=== PATIENT | male | born 1945 | race Caucasian/White ===

== ENCOUNTER → 2016-07-06 | Outpatient (CLI) | payer OTHER, BC | LOC: MMPC 11:11 | PROVIDERS: ATTEND Surgery | DX: K59.00 Constipation, unspecified (principal) | CPT/HCPCS: 99212 ==

== ENCOUNTER → 2016-07-08 | Outpatient (CLI) | payer OTHER, BC ==
[2016-07-08 11:04] LABS: BASOPHILS # (AUTO) 0.01 10*3/UL; BASOPHILS % (AUTO) 0.2 % (0-1); EOSINOPHILS % (AUTO) 1.8 % (0-8); HEMATOCRIT 42.3 % (42.0-52.0); HEMOGLOBIN 13.7 g/dL (14.0-18.0); LYMPHOCYTES # (AUTO) 1.66 10*3/uL; MEAN CORPUSCULAR HEMOGLOBIN 30.8 PG (27-31); MEAN CORPUSCULAR HGB CONC 32.4 g/dL (33-37); MEAN CORPUSCULAR VOLUME 95.1 FL (80-90); MEAN PLATELET VOLUME 9.6 FL (7.4-12.2); MONOCYTES # (AUTO) 0.56 10*3/UL (0.3-0.8); MONOCYTES % (AUTO) 10.1 % (5-15); NEUTROPHILS # (AUTO) 3.19 10*3/UL; NEUTROPHILS % (AUTO) 57.7 % (50-80); RED BLOOD COUNT 4.45 10^6/uL (4.70-6.10)
[2016-07-08 12:07] LABS: PLATELET MORPHOLOGY COMMENT NORMAL MORPHOLOGY (NORM); RBC MORPHOLOGY COMMENT NORMAL MORPHOLOGY (NORM); WBC MORPHOLOGY COMMENT NORMAL MORPHOLOGY (NORM)
[2016-07-08 14:25] LABS: HEMOGLOBIN A1C 6.66 % (4.2-6.0)
== END ==
LOC: MOB LAB 10:19
DX: E11.9 Type 2 diabetes mellitus without complications (principal); I10 Essential (primary) hypertension; G47.30 Sleep apnea, unspecified
CPT/HCPCS: 36415; 83036; 85025

== ENCOUNTER 2016-07-10 12:21 | Emergency (ER) | payer OTHER, BC ==
[2016-07-10 12:51] VITALS: RESP 18; TEMP 97.7
[2016-07-10] MEDS ORDERED: NORMAL SALINE 10 ML SYRINGE FLUSH IVP PRN (13:32)
--- NOTE | 2016-07-10 14:08 | DI ---
XR SHOULDER MIN 2VW,07/10/2016 12:56 PM: Clinical History: Fall with shoulder and upper back pain. Previous Exam: None at this facility. Findings: 2 views of the left shoulder are obtained, and demonstrate anatomic alignment without fractures. The adjacent left lung and chest wall are unremarkable. Impression: Normal left shoulder.
--- NOTE | 2016-07-11 01:39 | PDOC ---
Shoulder Injury/Pain HPI - General Chief Complaint: Upper Extremity Problem/Injury Stated Complaint: L SHOULDER BLADE/UPPER BACK PAIN Date Seen by Provider: 07/10/16 Time Seen by Provider: 12:25 Source: POSITIVE: Patient Exam Limitations: POSITIVE: No limitations Nurse's Notes Reviewed & Considered: Yes - History of Present Illness Initial Comments: The patient is a 71-year-old male. Approximately 2 on a half hours [employer] he was getting out of his recreational vehicle and he slipped and struck the posterior aspect of his left shoulder on the chassis of the vehicle. He complains of pain to the left shoulder since. He denies any associated head neck back chest abdominal or other extremity injuries or symptoms. Have you received a tetanus shot in the past 10 years?: Yes Location: Left Shoulder Timing: REPORTS: Abrupt Duration: 1-3 hours Severity: Moderate Quality: REPORTS: "Pain", Tenderness Context: REPORTS: Direct Blow Associated Symptoms: REPORTS: Bruising (Some ecchymosis over the posterior aspect of left shoulder with associated abrasion) Any Prior Injuries Related to Current Complaint?: No - Patient Home Medications Home Medications: Home Medications Aspirin/Calcium Carbonate/Mag [Aspirin Buffered 325 Mg Tab] 325 mg PO QD tab Omeprazole 1 tab PO DAILY PRN cap 11/29/12 Tadalafil [Cialis] 1 tab PO PRN PRN tab 11/29/12 Pantoprazole Sodium 1 tab PO BID #60 tab 06/28/13 Blood-Glucose Meter [Freestyle Lite Meter] 1 each MC DAILY unit 07/31/13 Blood Sugar Diagnostic [Freestyle Test Strips] 1 each IN DAILY #50 strip Ca Cmb No.1/Vit D3/B-6/FA/B12 [Vitamin D3 1,000 Unit Tablet] 1 tab PO DAILY #30 tab 11/09/13 Nitroglycerin 1 tab SL PRN #9 tab 06/18/14 Fluticasone Propionate [Flonase Allergy Relief] 2 spr TONY DAILY #1 spr Fluticasone Propionate [Flonase Allergy Relief] 2 spr TONY DAILY #1 spr Triamcinolone Acetonide [Nasacort] 2 spr TONY QD #1 spray 07/04/15 Montelukast Sodium [Singulair] 1 tab PO QD PRN #90 tab 08/27/15 Carvedilol 1 tab PO BID #180 tab 11/07/15 Pravastatin Sodium [Pravachol] 1 tab PO QD #90 tab 01/24/16 Losartan Potassium 1 tab PO QD #90 tab 06/29/16 Pioglitazone HCl/Metformin HCl [Actoplus Met 15 Mg-500 Mg Tab] 1 tab PO BID # 180 tab 06/29/16 - Patient Allergies Allergies/Adverse Reactions: Allergies Allergy/AdvReac Type Severity Reaction Status Date / Time Iodinated Contrast Media - Allergy Severe Anaphylaxis Verified 07/10/16 12:23 Oral and lisinopril AdvReac Intermediate NOT Verified 07/10/16 12:23 APPLICABLE metoprolol AdvReac Intermediate lethargy Verified 07/10/16 12:23 Past Medical History - heen HEENT History: Denies History Cardiovascular History: Hypertension, CAD, Hyperlipidemia Additional Cardiovasular History: -CABG 2014. 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: Impotence Cancer History: Denies History In Past Year Been Physically Harmed or Verbally Threatened: No History of MDRO: No Tobacco Use: Former Smoker Alcohol Use: Heavy Type of alcohol normally used: Hard Liquor Substance Use Type: None Previous Surgical History: Yes Type / Date of Surgery: CABG/ STENTS/ TONSILLECTOMY/ R WRIST FX Anesthesia Reactions: No Malignant Hyperthermia: No Significant Family History: No pertinent family hx Past Medical History Reviewed: Reviewed - No Changes ROS - Limitations ROS Limitations: No Limitations Constitution: REPORTS: Denies Symptoms Cardiovascular: REPORTS: Denies Cardiac Symptoms Respiratory: REPORTS: Denies Resp Symptoms Neurological: REPORTS: Denies Neuro Symptoms Gastrointestinal: REPORTS: Denies GI Symptoms Endocrine: REPORTS: Denies Symptoms Musculoskeletal: REPORTS: Joint Pain (Left shoulder), Recent Injury (As above) Genitourinary: REPORTS: Denies Symptoms Eyes: REPORTS: Denies Symptoms ENT: REPORTS: Denies Symptoms Skin: REPORTS: Other (Abrasion and contusion over posterior aspect of left shoulder) Lympathic: REPORTS: Denies Lympathic Symptoms Immunologic: POSITIVE: Denies Symptoms Psychiatric: POSITIVE: Denies Psych Symptoms Shoulder Injury/Pain Exam - General Appearance General Appearance: POSITIVE: Alert, Cooperative, Mild Distress. NEGATIVE: No Evidence of Trauma - Upper Extremity Shoulder: POSITIVE: Full ROM (But full abduction and extension painful), No Dislocation, Soft-Tissue Tenderness (Posterior aspect of left shoulder), Bony Tenderness (Posterior aspect of left shoulder), Ecchymosis (Posterior aspect of left shoulder), Held in Adduction, See Diagram. NEGATIVE: Swelling, Clavicular Deformity, AC Drop-Off, Anterior Fullness, Limited ROM, Limited Abduction (Full abduction painful) Upper Extremity: POSITIVE: Uninjured Below Shoulder Neuro/Vascular: POSITIVE: Sensation Normal, Motor Normal, No Vascular Compromise Skin: POSITIVE: See Diagram (Contusion and abrasion posterior aspect left shoulder) - HEENT HEENT: POSITIVE: Head Inspection Nml, Eyes Inspection Nml, Ears Inspection Nml, Nose Inspection Nml, Oral/Dental Inspect. Nml, Pharynx Inspect. Nml, PERRL, EOMI - Neck / Back Neck/Back: POSITIVE: Normal Inspection, Non-Tender, Painless ROM - Respiratory / CVS Respiratory / CVS: POSITIVE: Chest Non Tender, No Ecchymosis, Breath Sounds Normal, No Respiratory Distress, Heart Sounds Normal, Regular Rate/Rhythm Peripheral Pulses: Radial (R): 2+, Radial (L): 2+ Images - Upper Extremities Upper Extremities: 1 - Abrasion and small contusion Shoulder Pain/Injury Progress - Results Reviewed by me Xrays/CTs/US Reviewed by me: Yes Discussed with Radiologist: No Radiology Findings: X-ray left shoulder normal - Patient's Progress Pain Medication Addressed: POSITIVE: Yes (Recommended Advil or Tylenol) School/Work Release Addressed: POSITIVE: Not Applicable Re-Examine Time:: 13:20 Re-Examine Comment: Shoulder immobilizer placed Status: POSITIVE: Unchanged, Re-Examined - Consult Counseled: POSITIVE: Patient, RE: Radiology Results, RE: DX, RE: Need for F/U Patient Care Time - Estimated PCT Patient Care Time (In Minutes): 30 Vital Signs - VS Reviewed Vital Signs Reviewed: Yes Discharge Clinical Impression: Contusion Discharge Disposition: Discharged to Home Condition: Stable Patient Instructions Given at Discharge: Contusion in Adults (ED) Additional Instructions: X-ray of your left shoulder shows no fractures or dislocations. You do have a contusion over the back of your left shoulder and an abrasion, but I see no evidence of any serious injuries. Advil or Tylenol for pain. Wear shoulder immobilizer as necessary. Wash abrasion with soap and water daily and apply bacitracin daily. Return anytime if condition worsens in any way. Follow-up with your primary care provider. Follow Up With: [facility] [Primary Care Provider] - (Instructions as above. Follow-up with your primary care provider. Return here anytime if condition worsens.)
== END 2016-07-10 13:36 | disposition home or self-care (01) ==
LOC: ER 12:21
DX: S40.012A Contusion of left shoulder, initial encounter (principal); S40.212A Abrasion of left shoulder, initial encounter; E11.9 Type 2 diabetes mellitus without complications; M25.512 Pain in left shoulder; Z95.1 Presence of aortocoronary bypass graft; W17.89XA Other fall from one level to another, initial encounter
CPT/HCPCS: 73030; 99282; 99283

== ENCOUNTER 2016-07-13 07:55 | Day surgery (SDC) | payer OTHER, BC ==
[~2016-07-13 07:55] MED LIST: LIDOCAINE W/ SODIUM BICARB 0.5 ML SYR ONE; Lactated Ringers 1,000 ML PRIMARY IV ONE
--- NOTE | 2016-07-13 08:44 | GEN.OPNOTE ---
Operative Note Surgery Date: 07/13/16 Preoperative Diagnosis: Desire for sterilization Postoperative Diagnosis: Same Procedure: Vasectomy Surgeon: Segundo Avelar MD Anesthesia Provider: Bradley James CRNA Anesthesia Type: Local, MAC Estimated Blood Loss (mL): 2 Fluids: Lactated Ringer's please see anesthesia notes in EMR Pathology: Right and left vas deferens Indications: Patient is reaches reproductive goals would like permanent sterilization Operative Summary: The patient was brought into the operating room placed in dorsal lithotomy position prepped draped sterile fashion. I identified the vas deferens on the left side initially infiltrate local anesthetic dissect out the vas deferens removed a 1 cm segment tied off the distal end. I sewed the distal cut in back upon itself. I then returned the spermatic cord and its anatomical position closed the skin with 5-0 Vicryl simple sutures. I then identified the vas on the right side infiltrate local anesthetic. Dissect out the vas deferens. Removed a 1 cm segment. I tied off the distal and in a similar fashion Close the skin in a similar fashion. Patient tolerated well no complications. Counts were correct.
[2016-07-13] MEDS ORDERED: KETOROLAC 30 MG/1 ML VIAL ONE (08:59)
--- NOTE | 2016-07-13 09:28 | GEN.OPNOTE ---
Colonoscopy Procedure Note Surgery Date: 07/13/16 Preoperative Diagnosis: Screening colonoscopy Postoperative Diagnosis: Normal appearing colon Procedure: Colonoscopy Surgeon: Segundo Avelar MD Anesthesia Provider: Bradley James CRNA Anesthesia Type: MAC Indications: Colon cancer screening Findings: Prep : Marginal Cecum : There is a video colonoscopy scope inserted all way to the cecum. I so it appeared be necrosis foot but cannot truly identify the ileocecal valve. Therefore again antibiotics since her saw the cecum but the portion I did see appeared be normal Ascending : Ascending colon within normal limits no polyps tumors or cancers Transverse : Transverse colon within normal limits Sigmoid : Descending and sigmoid colon within normal limits Rectum : Rectum had no abnormal pathology. Digital Rectal Exam : A lubricated flexible colonoscope was inserted and passed to the blind end of the cecum. Additional Details: Because I cannot be certain that I reach the cecum I will offer the patient completion colonoscopy versus just follow him with Hemoccult cards
[2016-07-13 10:03] VITALS: RESP 17
[2016-07-13 11:56] VITALS: TEMP 98
== END 2016-07-13 10:22 | disposition home or self-care (01) ==
LOC: SDSC 07:55
PROVIDERS: ATTEND Surgery
DX: Z12.11 Encounter for screening for malignant neoplasm of colon (principal)
CPT/HCPCS: 00810; G0121 ×2; J1885; J2704; J7120

== ENCOUNTER → 2016-07-31 | Outpatient (CLI) | payer OTHER, BC | LOC: MMPC 10:00 | PROVIDERS: ATTEND Orthopaedic Surgery | DX: S46.012A Strain of muscle(s) and tendon(s) of the rotator cuff of left shoulder, initial encounter (principal); W17.89XA Other fall from one level to another, initial encounter | CPT/HCPCS: 20610 ×2; 99203; G0463; J0702 ==